=== PATIENT | female | born 1980 | race Caucasian/White ===

== ENCOUNTER 2017-09-29 08:00 | Outpatient (CLI) | payer OTHER, MEDICAID ==
[2017-09-29 12:32] LABS: BASOPHILS # (AUTO) 0.1 10^3/uL (0.0-0.1); BASOPHILS % (AUTO) 0.8 %; EOSINOPHILS # (AUTO) 0.1 10^3/uL (0.0-0.7); EOSINOPHILS % (AUTO) 0.9 %; HGB - HEMOGLOBIN 12.4 g/dL (12.0-16.0); LYMPHOCYTES # (AUTO) 1.9 10^3/uL (1.5-3.5); LYMPHOCYTES % (AUTO) 26.2 %; MEAN CORPUSCULAR HEMOGLOBIN 28.3 pg (27.0-31.0); MEAN CORPUSCULAR VOLUME 83.2 fL (81.0-99.0); MEAN PLATELET VOLUME 7.5 fL (7.9-10.8); MONOCYTES # (AUTO) 0.7 10^3/uL (0.0-1.0); MONOCYTES % (AUTO) 9.1 %; NEUTROPHILS # (AUTO) 4.5 10^3/uL (1.5-6.6); PLT - PLATELET COUNT 321 10^3/uL (130-450); RED BLOOD COUNT 4.37 10^6/uL (4.20-5.40); RED CELL DISTRIBUTION WIDTH 13.6 % (12.0-15.0); WHITE BLOOD COUNT 7.1 x10^3/uL (4.8-10.8)
[2017-09-29 12:57] LABS: ALBUMIN 3.7 g/dL (3.2-5.5); ALBUMIN/GLOBULIN RATIO 0.9 (1.0-2.2); ALKALINE PHOSPHATASE 80 IU/L (42-121); ALT ALANINE AMINOTRANSFERASE 22 IU/L (10-60); AST ASPARTATE AMINOTRANSFERASE 16 IU/L (10-42); BILIRUBIN,TOTAL 0.4 mg/dL (0.2-1.0); BUN - BLOOD UREA NITROGEN 20 mg/dL (6-20); CARBON DIOXIDE - CO2 23 mmol/L (21-32); CHLORIDE 105 mmol/L (101-111); CHOLESTEROL 163 mg/dL; CREATININE 0.8 mg/dL (0.4-1.0); GFR - MDRD 82 (>89); GLUCOSE 80 mg/dL (70-100); HDL CHOLESTEROL 59 mg/dL; LDL CHOLESTEROL,CALCULATED 92 mg/dL; SODIUM 135 mmol/L (135-145); TOTAL PROTEIN 7.7 g/dL (6.7-8.2); VLDL CHOLESTEROL 12 mg/dL
[2017-09-29 12:58] LABS: CHOL/HDL RATIO 2.8 (<4.4); LDL/HDL RATIO 1.6 (<4.4)
== END 2017-09-29 08:01 ==
LOC: LAB.N 08:00
PROVIDERS: ATTEND Nurse Practitioner Gerontology
DX: Z79.899 Other long term (current) drug therapy (principal); E03.9 Hypothyroidism, unspecified; D64.9 Anemia, unspecified
CPT/HCPCS: 36415; 80050; 80061; 83721

== ENCOUNTER 2019-02-16 08:00 | Outpatient (CLI) | payer OTHER, MEDICAID ==
[2019-02-16 18:40] LABS: BASOPHILS # (AUTO) 0.1 10^3/uL (0.0-0.1); BASOPHILS % (AUTO) 0.8 %; EOSINOPHILS # (AUTO) 0.1 10^3/uL (0.0-0.7); EOSINOPHILS % (AUTO) 1.3 %; HGB - HEMOGLOBIN 11.7 g/dL (12.0-16.0); LYMPHOCYTES # (AUTO) 1.7 10^3/uL (1.5-3.5); LYMPHOCYTES % (AUTO) 27.7 %; MEAN CORPUSCULAR HEMOGLOBIN 28.3 pg (27.0-31.0); MEAN CORPUSCULAR HGB CONC 31.6 g/dL (32.0-36.0); MEAN CORPUSCULAR VOLUME 89.6 fL (81.0-99.0); MEAN PLATELET VOLUME 9.2 fL (7.9-10.8); MONOCYTES # (AUTO) 0.6 10^3/uL (0.0-1.0); MONOCYTES % (AUTO) 9.7 %; NEUTROPHILS # (AUTO) 3.6 10^3/uL (1.5-6.6); NEUTROPHILS % (AUTO) 60.3 %; PLT - PLATELET COUNT 305 10^3/uL (130-450); RED BLOOD COUNT 4.13 10^6/uL (4.20-5.40); RED CELL DISTRIBUTION WIDTH 12.9 % (12.0-15.0)
[2019-02-16 18:53] LABS: ALBUMIN 3.5 g/dL (3.2-5.5); ALBUMIN/GLOBULIN RATIO 0.9 (1.0-2.2); ALKALINE PHOSPHATASE 88 IU/L (42-121); ALT ALANINE AMINOTRANSFERASE 23 IU/L (10-60); AST ASPARTATE AMINOTRANSFERASE 20 IU/L (10-42); BILIRUBIN,TOTAL 0.2 mg/dL (0.2-1.0); BUN - BLOOD UREA NITROGEN 19 mg/dL (6-20); CALCIUM 8.9 mg/dL (8.5-10.3); CARBON DIOXIDE - CO2 23 mmol/L (21-32); CHLORIDE 106 mmol/L (101-111); CHOL/HDL RATIO 2.9 (<4.4); CHOLESTEROL 150 mg/dL; CREATININE 0.8 mg/dL (0.4-1.0); GFR - MDRD 81 (>89); GLUCOSE 95 mg/dL (70-100); HDL CHOLESTEROL 51 mg/dL; LDL CHOLESTEROL,CALCULATED 79 mg/dL; LDL/HDL RATIO 1.5 (<4.4); SODIUM 136 mmol/L (135-145); TOTAL PROTEIN 7.3 g/dL (6.7-8.2); VLDL CHOLESTEROL 20 mg/dL
== END 2019-02-16 23:59 | disposition home or self-care (01) ==
LOC: LAB.WCP 08:00
PROVIDERS: ATTEND Nurse Practitioner Gerontology
DX: I10 Essential (primary) hypertension (principal); F90.9 Attention-deficit hyperactivity disorder, unspecified type; E03.9 Hypothyroidism, unspecified
CPT/HCPCS: 36415; 80053; 80061; 83721; 84443; 85025

== ENCOUNTER 2019-08-31 10:44 | Outpatient (CLI) | payer OTHER, MEDICAID ==
--- NOTE | 2019-08-31 14:09 | XRAY Report ---
Reason: CHRONIC COUGH Procedure Date: 08/31/2019 Accession Number: [id number] / [id number] Procedure: XRN - Chest 2 View X-Ray CPT Code: 91156 Final Report FULL RESULT: EXAM: CHEST RADIOGRAPHY EXAM DATE: 08/31/2019 11:01 AM. CLINICAL HISTORY: CHRONIC COUGH. COMPARISON: None. TECHNIQUE: 2 views. FINDINGS: Lungs/Pleura: No focal opacities evident. No peribronchial cuffing or interstitial abnormality. No pleural effusion. No pneumothorax. Normal volumes. Mediastinum: Heart and mediastinal contours are unremarkable. Other: None. IMPRESSION: Normal 2-view chest radiography. [facility]
== END 2019-08-31 10:45 | disposition home or self-care (01) ==
LOC: DI.N 10:44
PROVIDERS: ATTEND Nurse Practitioner Gerontology
DX: R05 Cough (principal)
CPT/HCPCS: 71046

== ENCOUNTER 2019-09-02 18:58 | Outpatient (CLI) | payer OTHER, MEDICAID ==
--- NOTE | 2019-09-03 | Ultrasound Report ---
Reason: PAIN IN LT LOWER LEG Procedure Date: 09/02/2019 Accession Number: [id number] / [id number] Procedure: US - Duplex Ext Veins Left CPT Code: Final Report FULL RESULT: EXAM: LEFT LOWER EXTREMITY VENOUS ULTRASOUND. EXAM DATE: 09/02/2019 07:47 PM. CLINICAL HISTORY: Pain in left lower leg. COMPARISON: None. TECHNIQUE: Real-time sonographic vascular imaging was performed by the radio performer through the lower extremity utilizing both color-flow and Doppler spectral analysis. Multiple environmental marketing representative static images were saved for review. FINDINGS: Common Femoral Vein (CFV): Normal. CFV-GSV Junction: Normal. Profunda Femoral Vein (PFV): Normal. Femoral Vein (FV) Prox: Normal. Femoral Vein (FV) Mid: Not well seen without definite thrombus. Femoral Vein (FV) Dist: Not well seen without definite thrombus. Popliteal Vein: Not well seen without definite thrombus. Posterior Tibial Veins: Not well seen without definite thrombus. Peroneal Veins: Not well seen without definite thrombus. Other: Lateral left knee region deep fluid collection measuring approximately 3 x 0.5 x 2 cm. IMPRESSION: 1. No evidence for left leg deep venous thrombosis. 2. Approximately 3 x 0.5 x 2 cm deep fluid collection laterally at the knee of uncertain etiology. If indicated, MRI could be considered. [facility]
== END 2019-09-02 18:59 | disposition home or self-care (01) ==
LOC: DI 18:58
PROVIDERS: ATTEND Nurse Practitioner Gerontology
DX: M79.662 Pain in left lower leg (principal); M25.462 Effusion, left knee

== ENCOUNTER 2019-11-27 11:24 | Outpatient (CLI) | payer OTHER, MEDICAID | END 2019-11-27 11:25 | disposition EMS.NT | LOC: EMS 11:24 | PROVIDERS: ATTEND Surgery | DX: M25.562 Pain in left knee (principal) ==

== ENCOUNTER 2019-11-27 11:55 | Emergency (ER) | payer OTHER, MEDICAID ==
--- NOTE | 2019-11-27 13:24 | ED Physician Documentation ---
PD HPI LOWER EXT INJURY - Stated complaint Stated Complaint: L KNEE PX - Chief complaint Chief Complaint: Ext Problem - History obtained from History obtained from: Patient - History of Present Illness PD HPI LOW EXT INJURY LOCATION: Left, Knee Type of injury: Twist Where injury occurred: Home Timing - onset: Today Timing - details: Abrupt onset Worsened by: Moving, Other (torsion) Associated symptoms: No: Weakness, Numbness Similar symptoms before: No diagnosis (has knee pains at times. No regular clicking nor popping.) Review of Systems Constitutional: denies: Fever, Chills Nose: denies: Rhinorrhea / runny nose, Congestion Throat: denies: Sore throat Respiratory: denies: Cough Skin: denies: Abrasion (s), Laceration (s) PD PAST MEDICAL HISTORY - Past Medical History Cardiovascular: Hypertension Respiratory: Shortness of breath Endocrine/Autoimmune: HyPOthyroidism Psych: Panic attacks, ADD/ADHD, Obsessive compulsive disorder, Eating disorder - Past Surgical History Past Surgical History: Yes HEENT: Myringotomy (tubes), Tonsil/Adenoidectomy - Present Medications Home Medications: Ambulatory Orders Medication Instructions Recorded Confirmed Dextroamphetamine/Amphetamine 10 mg PO BID 04/17/13 04/12/14 [Amphetamine Salts 10 mg Tab] Ibuprofen 400 mg PO Q6HR PRN 04/17/13 04/12/14 Ciprofloxacin HCl [Cipro] 500 mg PO BID #10 tablet 10/19/15 Levothyroxine [Synthroid] 10/19/15 Saccharomyces Boulardii [Florastor] 500 mg PO BID #40 capsule 10/19/15 Naproxen 375 mg PO BID #20 tablet 11/27/19 - Allergies Allergies/Adverse Reactions: Allergies Allergy/AdvReac Type Severity Reaction Status Date / Time No Known Drug Allergies Allergy Verified 04/17/13 15:04 - Social History Does the pt smoke?: No Smoking Status: Never smoker Does the pt drink ETOH?: No Does the pt have substance abuse?: No - Immunizations Immunizations are current?: Yes - POLST Patient has POLST: No PD ED PE NORMAL - Vitals Vital signs reviewed: Yes - General General: Alert and oriented X 3, No acute distress, Well developed/nourished - Derm Derm: Normal color, Warm and dry, No rash - Extremities Extremities: Other (left knee with tenderness anteriorly, without obvious effusion. Tender diffusely around knee. Some pain with cruciate and collateral testing but no gross laxity. Large legs so stress testing limited. ) - Neuro Neuro: Alert and oriented X 3, No motor deficit, No sensory deficit, Normal speech Results - Vitals Vitals: Oxygen O2 Source Room air - Rads (name of study) left knee Radiology: Prelim report reviewed (no osseous abnormality acutely; mild to moderate degenerative changes.), See rad report Departure - Departure Disposition: 01 Home, Self Care Clinical Impression: Knee strain Qualifiers: Encounter type: initial encounter Laterality: left Qualified Code(s): S86.912A - Strain of unspecified muscle(s) and tendon(s) at lower leg level, left leg, initial encounter Condition: Stable Record reviewed to determine appropriate education?: Yes Instructions: ED Meniscal Injury Knee Poss Follow-Up: GRACE MERLOS, MSN, MANUFACTURING ENGINEER CHIEF [Primary Care Provider] - [facility] [Provider Group] Prescriptions: Naproxen 375 mg PO BID #20 tablet Comments: Your knee x-ray appears okay. The majority of the knee problems however are not bony but more the soft tissue such as ligaments muscles and cartilage. It sounds like you likely have injury or inflammation of the cartilage (also called the meniscus). I would have you use the knee brace with limited range of motion when up and around for the next 2 to 3 weeks. Also use anti-inflammatory naproxen twice daily and add Tylenol if needed for pains. Follow-up with your primary care or possibly orthopedics for reevaluation. Obtain the MRI of the knee when the referral goes through from your primary care. Discharge Date/Time: 11/27/19 14:50
[2019-11-27] MEDS ORDERED: ACETAMINOPHEN 325 MG TABLET PO STA (13:48)
[2019-11-27] MEDS ORDERED: IBUPROFEN 600 MG TABLET PO STA (13:48)
[2019-11-27 14:50] VITALS: BP 139/76
--- NOTE | 2019-11-27 14:51 | XRAY Report ---
Reason: knee pain worse today with standing Procedure Date: 11/27/2019 Accession Number: [id number] / [id number] Procedure: XR - Knee 3 View LT CPT Code: Final Report FULL RESULT: EXAM: LEFT KNEE RADIOGRAPHY EXAM DATE: 11/27/2019 02:14 PM. CLINICAL HISTORY: Knee pain worse today with standing. COMPARISON: None. TECHNIQUE: 3 views. FINDINGS: Bones: No acute fracture or bony lesion. Multifocal degenerative osteophyte formation. Joints: Mild narrowing of the medial and lateral compartment and moderate narrowing of the patellofemoral compartment. Trace left knee effusion. No dislocation. Soft Tissues: Normal. No soft tissue swelling. IMPRESSION: 1. No acute osseous abnormalities. 2. Mild to moderate degenerative changes of the left knee. [facility]
== END 2019-11-27 14:50 | disposition home or self-care (01) ==
LOC: ED 11:55
DX: S86.912A Strain of unspecified muscle(s) and tendon(s) at lower leg level, left leg, initial encounter (principal); X50.1XXA Overexertion from prolonged static or awkward postures, initial encounter; Y92.009 Unspecified place in unspecified non-institutional (private) residence as the place of occurrence of the external cause; M17.12 Unilateral primary osteoarthritis, left knee; I10 Essential (primary) hypertension
CPT/HCPCS: 73562; 99283; A9270

== ENCOUNTER 2020-02-02 08:54 | Outpatient (CLI) | payer OTHER, MEDICAID | END 2020-02-02 08:55 | disposition home or self-care (01) | LOC: DI 08:54 | PROVIDERS: ATTEND Nurse Practitioner Family | DX: R00.0 Tachycardia, unspecified (principal) | CPT/HCPCS: 93306 ==

== ENCOUNTER 2021-08-16 19:57 | Outpatient (CLI) | payer OTHER, MEDICAID | END 2021-08-16 23:59 | disposition critical access hospital (66) | LOC: EMS 19:57 | DX: I46.9 Cardiac arrest, cause unspecified (principal) | CPT/HCPCS: A0425; A0427 ==

== ENCOUNTER 2021-08-16 20:07 | Emergency (ER) | payer OTHER, MEDICAID ==
[2021-08-16] MEDS ORDERED: DEXMEDETOMIDINE 400 MCG/100 ML 100 ML IV PRN (20:46)
[2021-08-16] MEDS ORDERED: EPINEPHrine 4 MG in DEXTROSE 5% 246 ML IV STA (20:46)
[2021-08-16 21:03] LABS: BASOPHILS % (AUTO) 0.3 %; EOSINOPHILS % (AUTO) 0.2 %; LYMPHOCYTES % (AUTO) 25.4 %; MEAN CORPUSCULAR HEMOGLOBIN 22.5 pg (27.0-31.0); MEAN CORPUSCULAR HGB CONC 24.3 g/dL (32.0-36.0); MEAN CORPUSCULAR VOLUME 92.5 fL (81.0-99.0); MEAN PLATELET VOLUME 10.1 fL (7.9-10.8); MONOCYTES % (AUTO) 3.2 %; NEUTROPHILS % (AUTO) 63.3 %; PLT - PLATELET COUNT 371 10^3/uL (130-450); RED CELL DISTRIBUTION WIDTH 22.1 % (12.0-15.0)
[2021-08-16 21:09] LABS: HCT - HEMATOCRIT 18.5 % (37.0-47.0); HGB - HEMOGLOBIN 4.5 g/dL (12.0-16.0); WHITE BLOOD COUNT 35.6 x10^3/uL (4.8-10.8)
[2021-08-16 21:10] LABS: ABNORMAL LYMPHS % (MANUAL) 0 %; BAND NEUTROPHILS % (MANUAL) 0 %
--- NOTE | 2021-08-16 21:11 | XRAY Report ---
PROCEDURE: Chest 1 View X-Ray INDICATIONS: post cpr, intubation TECHNIQUE: One view of the chest was acquired. COMPARISON: None available. FINDINGS: Surgical changes and devices: The tip of the endotracheal tube is in the right mainstem bronchus. Th ere is a nasogastric tube in the stomach. A right-sided central line projecting to the right atrium. There is a left-sided central line projecting to the midline, uncertain location. Lungs and pleura: Left lung is completely opacified, likely collapsed. Diffuse infiltrate in the rig ht lung. No pleural effusions or pneumothorax. Mediastinum: Mediastinal contours appear normal. Heart size is normal. Bones and chest wall: No suspicious bony lesions. Overlying soft tissues appear unremarkable. IMPRESSION: 1. Right mainstem bronchus intubation. 2. Suspect collapsed left lung. 3. Diffuse airspace opacity in right lung consistent with pulmonary edema. 4. Nasogastric tube in the stomach. 5. The right IJ central line tip is in the right atrium. Suspected left-sided central line the tip pr ojecting to the midline. Please confirm venous nature of the catheter before using the catheter. The result was discussed with Dr. [place]. Reviewed by: Raisa Harris MD on 08/16/2021 9:09 PM PST Approved by: Raisa Harris MD on 08/16/2021 9:09 PM PST Station ID: [id number]
[2021-08-16 21:26] LABS: ACETAMINOPHEN < 10 ug/mL (10-30); ALBUMIN 2.3 g/dL (3.2-5.5); ALBUMIN/GLOBULIN RATIO 0.7 (1.0-2.2); ALKALINE PHOSPHATASE 131 IU/L (42-121); ALT ALANINE AMINOTRANSFERASE 38 IU/L (10-60); AST ASPARTATE AMINOTRANSFERASE 55 IU/L (10-42); BILIRUBIN,TOTAL 0.7 mg/dL (0.2-1.0); BUN - BLOOD UREA NITROGEN 42 mg/dL (6-20); CALCIUM 8.2 mg/dL (8.5-10.3); CHLORIDE 107 mmol/L (101-111); CREATININE 1.4 mg/dL (0.4-1.0); ETOH - ETHANOL < 5.0 mg/dL; GFR - MDRD 42 (>89); GLUCOSE 341 mg/dL (70-100); LIPASE 43 U/L (22-51); POTASSIUM 5.7 mmol/L (3.5-5.0); SALICYLATE < 6.0 mg/dL; SODIUM 133 mmol/L (135-145); TOTAL PROTEIN 5.5 g/dL (6.7-8.2)
--- NOTE | 2021-08-16 21:27 | ED Physician Documentation ---
PD HPI CPR - Stated complaint Stated Complaint: CPR - Chief complaint Chief Complaint: Critical Care - History obtained from History obtained from: Family, EMS - Additional information Additional information: Limited history is available from EMS. They are unsure of any medical history that the patient has. They state that they were called to a witness arrest, bystander CPR was started. They do not know what medications the patient is on or any of her medical history. They state that they found the patient in a V. fib arrest, defibrillated the patient and the patient went into PEA/asystole. She had CPR given with 3 rounds of epinephrine. She had return of spontaneous circulation upon arrival to the emergency department after being down for approximately 45 minutes. She is making some attempt to breathe over the bagging. Review of Systems Unable to obtain: Intubated PD PAST MEDICAL HISTORY - Past Medical History Cardiovascular: Hypertension Respiratory: Shortness of breath Endocrine/Autoimmune: HyPOthyroidism Psych: Panic attacks, ADD/ADHD, Obsessive compulsive disorder, Eating disorder - Past Surgical History Past Surgical History: Yes HEENT: Myringotomy (tubes), Tonsil/Adenoidectomy - Present Medications Home Medications: Ambulatory Orders Medication Instructions Recorded Confirmed Dextroamphetamine/Amphetamine 10 mg PO BID 04/17/13 04/12/14 [Amphetamine Salts 10 mg Tab] Ibuprofen 400 mg PO Q6HR PRN 04/17/13 04/12/14 Ciprofloxacin HCl [Cipro] 500 mg PO BID #10 tablet 10/19/15 Levothyroxine [Synthroid] 10/19/15 Saccharomyces Boulardii [Florastor] 500 mg PO BID #40 capsule 10/19/15 Naproxen 375 mg PO BID #20 tablet 11/27/19 - Allergies Allergies/Adverse Reactions: Allergies Allergy/AdvReac Type Severity Reaction Status Date / Time No Known Drug Allergies Allergy Verified 04/17/13 15:04 - Social History Does the pt smoke?: No Smoking Status: Never smoker Does the pt drink ETOH?: No Does the pt have substance abuse?: No - Immunizations Immunizations are current?: Yes - POLST Patient has POLST: No PD ED PE NORMAL - Vitals Vital signs reviewed: Yes - General General: Other (Intubated, unresponsive, pupils fixed, morbidly obese) - HEENT HEENT: Atraumatic, Moist mucous membranes, Other (vomitus in the mouth, dark colored. pink frothy sputum in the ETtube) - Cardiac Cardiac: RRR, Other - Respiratory Respiratory: Other (rhonchi B, diminished breath sounds B) - Abdomen Abdomen: Soft, Non distended - Derm Derm: Other (cool, pale) - Extremities Extremities: No deformity - Neuro Neuro: Other (unresponsive) Eye Opening: None Motor: None Verbal: None GCS Score: 3 Results - Vitals Vitals: Oxygen O2 Source Room air - Labs Labs: Laboratory Tests 08/16/21 08/16/21 08/16/21 20:50 20:50 20:50 WBC 35.6 H* RBC 2.00 L Hgb 4.5 L* Hct 18.5 L* MCV 92.5 MCH 22.5 L MCHC 24.3 L RDW 22.1 H Plt Count 371 MPV 10.1 Neut # (Auto) Not Reportable Lymph # (Auto) Not Reportable [place] # (Auto) Not Reportable Eos # (Auto) Not Reportable Baso # (Auto) Not Reportable Absolute Nucleated RBC Not Reportable Total Counted 100 Band Neuts % (Manual) 0 Abnorm Lymph % (Manual) 0 Nucleated RBC % Not Reportable Neutrophils # (Manual) 22.4 H Lymphocytes # (Manual) 12.1 H Monocytes # (Manual) 1.1 H Eosinophils # (Manual) 0.0 Basophils # (Manual) 0.0 Nucleated RBCs 4 Differential Comment MANUAL DIFFERENTIAL WBC Morphology NORMAL APPEARANCE Platelet Estimate NORMAL (130-450,000) Platelet Morphology NORMAL APPEARANCE RBC Morph Micro Appear 2+ ANISOCYTOSIS Sodium 133 L Potassium 5.7 H Chloride 107 Carbon Dioxide 12 L* Anion Gap 14.0 H BUN 42 H Creatinine 1.4 H Estimated GFR (MDRD) 42 L Glucose 341 H Calcium 8.2 L Total Bilirubin 0.7 AST 55 H ALT 38 Alkaline Phosphatase 131 H Troponin I High Sens 59.7 H* Total Protein 5.5 L Albumin 2.3 L Globulin 3.2 Albumin/Globulin Ratio 0.7 L Lipase 43 Nasal Adenovirus (PCR) Nasal B. parapertussis DNA (PCR) Nasal Coronavir 229E PCR Nasal Coronavir HKU1 PCR Nasal Coronavir NL63 PCR Nasal Coronavir OC43 PCR Nasal Enterovir/Rhinovir PCR Nasal Influenza B PCR Nasal Influenza A PCR Nasal Parainfluen 1 PCR Nasal Parainfluen 2 PCR Nasal Parainfluen 3 PCR Nasal Parainfluen 4 PCR Nasal RSV (PCR) Nasal B.pertussis DNA PCR Nasal C.pneumoniae (PCR) Ugo Human Metapneumo PCR Nasal M.pneumoniae (PCR) Nasal SARS-CoV-2 (PCR) Salicylates < 6.0 Acetaminophen < 10 L Ethyl Alcohol < 5.0 08/16/21 21:15 WBC RBC Hgb Hct MCV MCH MCHC RDW Plt Count MPV Neut # (Auto) Lymph # (Auto) [place] # (Auto) Eos # (Auto) Baso # (Auto) Absolute Nucleated RBC Total Counted Band Neuts % (Manual) Abnorm Lymph % (Manual) Nucleated RBC % Neutrophils # (Manual) Lymphocytes # (Manual) Monocytes # (Manual) Eosinophils # (Manual) Basophils # (Manual) Nucleated RBCs Differential Comment WBC Morphology Platelet Estimate Platelet Morphology RBC Morph Micro Appear Sodium Potassium Chloride Carbon Dioxide Anion Gap BUN Creatinine Estimated GFR (MDRD) Glucose Calcium Total Bilirubin AST ALT Alkaline Phosphatase Troponin I High Sens Total Protein Albumin Globulin Albumin/Globulin Ratio Lipase Nasal Adenovirus (PCR) NOT DETECTED Nasal B. parapertussis DNA (PCR) NOT DETECTED Nasal Coronavir 229E PCR NOT DETECTED Nasal Coronavir HKU1 PCR NOT DETECTED Nasal Coronavir NL63 PCR NOT DETECTED Nasal Coronavir OC43 PCR NOT DETECTED Nasal Enterovir/Rhinovir PCR NOT DETECTED Nasal Influenza B PCR NOT DETECTED Nasal Influenza A PCR NOT DETECTED Nasal Parainfluen 1 PCR NOT DETECTED Nasal Parainfluen 2 PCR NOT DETECTED Nasal Parainfluen 3 PCR NOT DETECTED Nasal Parainfluen 4 PCR NOT DETECTED Nasal RSV (PCR) NOT DETECTED Nasal B.pertussis DNA PCR NOT DETECTED Nasal C.pneumoniae (PCR) NOT DETECTED Ugo Human Metapneumo PCR NOT DETECTED Nasal M.pneumoniae (PCR) NOT DETECTED Nasal SARS-CoV-2 (PCR) NOT DETECTED Salicylates Acetaminophen Ethyl Alcohol - Rads (name of study) cxr Radiology: Final report received, EMP read contemporaneously, See rad report Procedures - Central Line Central Line Preparation: Unable to obtain consent, Ultrasound used Central line location: Right IJ Central line type: Triple lumen Central line aftercare: Secured, Placement confirmed, No pneumothorax, No complications PD MEDICAL DECISION MAKING - ED course Complexity details: reviewed old records, reviewed results, re-evaluated patient, considered differential, d/w family ED course: 40-year-old female brought in by EMS in cardiac arrest. She had a brief return of spontaneous circulation. Her only access was an intraosseous line in the left tibia. Due to her body habitus, a femoral line was considered, but would have been very difficult to obtain. A right IJ line was placed. During the placement of this line, the patient suffered another cardiac arrest, so the line was secured while compressions were ongoing. All ports flushed well and withdrew blood. An NG tube was placed, Leong catheter was placed. There are large amounts of bloody sputum coming through the NG tube with bagging or when placed on the ventilator. Frequent suctioning was needed. The patient regained pulses for brief periods of time when a milligram of epinephrine was given. However she would quickly deteriorate into asystole and compressions would be restarted. Eventually the patient had been down for nearly an hour with brief returns of spontaneous circulation. Pupils are fixed and dilated. The code was called at 2109, time of . Asystole confirmed in 2 leads. I spoke with her family, mother and father who were able to provide more history. The patient had a history of autism. She had been complaining of shortness of breath for several weeks. She apparently had an episode of possible cardiac arrest in January 2021 and was at [facility] in the ICU for 5 days. Family states no cause was found. She has had echocardiograms and cardiac work-ups without any cause. The mother states that the patient drink a large amount of milk. No recent illnesses. No fevers. No Covid exposure that they are aware of. Unclear etiology of the cardiac arrest. The animal laboratory technician will be contacted by the warehouse puller. Of note on the chest x-ray reference is made to a left-sided central line. This appears to be an EKG lead. There was no left-sided central line in this patient. Her labs did reveal a significant leukocytosis and significant anemia. Unclear etiology. ETT was pulled back. This document was made in part using voice recognition software. While efforts are made to proofread this document, sound alike and grammatical errors may occur. IMPRESSION: 1. Right mainstem bronchus intubation. 2. Suspect collapsed left lung. 3. Diffuse airspace opacity in right lung consistent with pulmonary edema. 4. Nasogastric tube in the stomach. 5. The right IJ central line tip is in the right atrium. Suspected left-sided central line the tip projecting to the midline. Please confirm venous nature of the catheter before using the catheter. The result was discussed with Dr. [place]. - Critical Care Time Includes: Direct patient care, Reassess patient, Document care, See progress note Data interpretation: See progress note Procedures included in critical care time: See progress note Procedures excluded from critical care time: Central IV, CPR Departure - Departure Disposition: 20 Clinical Impression: Cardiopulmonary arrest Pulmonary edema Qualifiers: Chronicity: acute Qualified Code(s): J81.0 - Acute pulmonary edema
[2021-08-16 21:28] LABS: CARBON DIOXIDE - CO2 12 mmol/L (21-32)
[2021-08-16 21:30] LABS: LYMPHOCYTES # (MANUAL) 12.1 10^3/uL (1.5-3.5); LYMPHOCYTES % (MANUAL) 34 %; MONOCYTES # (MANUAL) 1.1 10^3/uL (0.0-1.0); NEUTROPHILS # (MANUAL) 22.4 10^3/uL (1.5-6.6); NUCLEATED RBC (MANUAL) 4 %
[2021-08-16 21:31] LABS: DIFFERENTIAL COMMENT MANUAL DIFFERENTIAL; PLATELET ESTIMATE, MANUAL NORMAL (130-450,000) (NORMAL); PLATELET MORPHOLOGY NORMAL APPEARANCE (NORMAL); WBC MORPHOLOGY (MULTIPLE) NORMAL APPEARANCE (NORMAL)
[2021-08-16] MEDS ORDERED: SODIUM BICARBONATE ABBOJECT 50 MEQ/50 ML SYRINGE IVP STA (21:59)
[2021-08-16] MEDS ORDERED: EPINEPHrine ABBOJECT 1 MG/10 ML SYRINGE IVP STA (21:59)
[2021-08-16] MEDS ORDERED: DEXTROSE 50% ABBOJECT 25 GM/50 ML SYRINGE IVP STA (22:02)
[2021-08-16 22:09] LABS: B. PARAPERTUSSIS- RESP PCR PAN NOT DETECTED; B. PERTUSSIS- RESP PCR PANEL NOT DETECTED; C. PNEUMONIAE- RESP PCR PANEL NOT DETECTED; CORONAVIRUS 229E-RESP PCR NOT DETECTED; CORONAVIRUS HKU1-RESP PCR NOT DETECTED; CORONAVIRUS NL63-RESP PCR NOT DETECTED; CORONAVIRUS OC43-RESP PCR NOT DETECTED; HUMAN METAPNEUMOVIRUS NOT DETECTED; INFLUENZA A- RESP PCR PANEL NOT DETECTED; INFLUENZA B - RESP PCR PANEL NOT DETECTED; M. PNEUMONIAE- RESP PCR PANEL NOT DETECTED; PARAINFLUENZA VIRUS 1 NOT DETECTED; PARAINFLUENZA VIRUS 2 NOT DETECTED; PARAINFLUENZA VIRUS 3 NOT DETECTED; PARAINFLUENZA VIRUS 4 NOT DETECTED; RHINOVIRUS/ENTEROVIRUS NOT DETECTED; RSV- RESP PCR PANEL NOT DETECTED; SARS-CoV-2 -RESP PCR PANEL NOT DETECTED
== END 2021-08-16 21:10 | disposition expired ==
LOC: EDUNIT# → ED 20:07
DX: I46.9 Cardiac arrest, cause unspecified (principal); J81.0 Acute pulmonary edema; Z20.822 Contact with and (suspected) exposure to COVID-19
CPT/HCPCS: 0202U; 36415; 36556; 71045; 80053; 80307; 80320; 80329; 83690; 84484; 85025; 92950; 96374; 99291; 82803